=== PATIENT | male | born 1965 | race Caucasian/White ===

== ENCOUNTER 2022-04-11 09:49 | Emergency (ER) | payer MEDICARE, MEDICAID ==
[~2022-04-11] VITALS: Ht 170.2 cm; Wt 75.0 kg
[~2022-04-11 09:49] MED LIST: ATOR10TA MT; METF-416 MT
[2022-04-11 09:51] VITALS: BP 124/82
[2022-04-11] MEDS ORDERED: TRANEXAMIC ACID 1,000 MG/10 ML IV ONE (10:00)
== END 2022-04-11 10:25 | disposition home or self-care (01) ==
LOC: ER 09:49
DX: K06.8 Other specified disorders of gingiva and edentulous alveolar ridge (principal); E11.9 Type 2 diabetes mellitus without complications; Z98.890 Other specified postprocedural states; F17.200 Nicotine dependence, unspecified, uncomplicated; Z00.00 Encounter for general adult medical examination without abnormal findings
CPT/HCPCS: 99283